=== PATIENT | female | born 1960 | race Caucasian/White ===

== ENCOUNTER 2023-10-25 08:22 | Day surgery (SDC) | payer BC, OTHER ==
[2023-10-18 14:51] VITALS: BMI 24.6
[2023-10-25 08:41] VITALS: RESP 18
[2023-10-25] MEDS ORDERED: PROPOFOL 160 ML ONE (09:48)
[2023-10-25 12:21] VITALS: BP 108/71; PULSE 60; TEMP 96.8
== END 2023-10-25 11:16 | disposition home or self-care (01) ==
LOC: FASU-ENDO 08:22
PROVIDERS: ATTEND Internal Medicine Gastroenterology
PROC: 0DJD8ZZ Inspection of Lower Intestinal Tract, Via Natural or Artificial Opening Endoscopic (ICD-10-PCS; principal; 2023-10-25 10:23)
DX: Z12.11 Encounter for screening for malignant neoplasm of colon (principal); K64.1 Second degree hemorrhoids